=== PATIENT | male | born 2000 | race Caucasian/White ===

== ENCOUNTER 2022-02-12 11:08 | Emergency (ER) | payer BC ==
[2022-02-12] MEDS: Ketorolac 30 MG/ML SDV IM ONE (12:25)
[2022-02-12] MEDS: Bacitracin/Neomycin/Polymyxin B Oint 0.9 GM U/D Packet TOP ONE (12:25)
== END 2022-02-12 12:35 | disposition home or self-care (01) ==
LOC: LL.ED 11:08
DX: S50.311A Abrasion of right elbow, initial encounter (principal); M25.511 Pain in right shoulder; M25.551 Pain in right hip; Z88.0 Allergy status to penicillin; Z88.1 Allergy status to other antibiotic agents; V80.010A Animal-rider injured by fall from or being thrown from horse in noncollision accident, initial encounter
CPT/HCPCS: 36415; 73030-RT; 85025; 96372; 99283; J1885

== ENCOUNTER 2022-02-18 23:38 | Emergency (ER) | payer BC ==
[2022-02-18] MEDS ORDERED: Ketorolac 30 MG/ML SDV IM ONE (23:41)
[2022-02-18] MEDS ORDERED: hydrOXYzine HCl 50 MG/ML SDV IM ONE (23:41)
[2022-02-18] MEDS ORDERED: Ondansetron 4 MG/2 ML SDV IM ONE (23:41)
[2022-02-19 00:10] VITALS: BP 126/73; PULSE 61
== END 2022-02-19 00:25 | disposition home or self-care (01) ==
LOC: LL.ED 23:38
DX: G43.909 Migraine, unspecified, not intractable, without status migrainosus (principal); Z88.1 Allergy status to other antibiotic agents; Z88.0 Allergy status to penicillin
CPT/HCPCS: 96372; 99283; J1885; J2405; J3410

== ENCOUNTER 2023-04-29 18:32 | Emergency (ER) | payer BC ==
[2023-04-29] MEDS ORDERED: Ondansetron 4 MG/2 ML SDV IVPUSH ONE (18:54)
[2023-04-29] MEDS ORDERED: Naloxone 0.4 MG/ML SDV IVPUSH PRN (18:54)
[2023-04-29] MEDS ORDERED: Morphine 2 MG/ML SYRINGE IVPUSH ONE ×2 (18:54→19:53)
[2023-04-29] MEDS ORDERED: Sodium Chloride 0.9% 10 ML Syringe FLUSH PRN (18:55)
[2023-04-29 19:10] LABS: BASOPHILS ABSOLUTE AUTO 0.02 K/uL (0.00-0.20); BASOPHILS PERCENT AUTO 0.2 % (0.0-2.0); EOSINOPHILS ABSOLUTE AUTO 0.11 K/uL (0.00-0.50); EOSINOPHILS PERCENT AUTO 1.1 % (0.0-5.0); HEMOGLOBIN 16.4 g/dL (13.1-16.8); LYMPHOCYTES PERCENT AUTO 12.3 % (10.0-50.0); MEAN CORPUSCULAR HEMOGLOBIN 29.4 pg (28.2-33.3); MEAN CORPUSCULAR HGB CONC 34.2 g/dL (31.7-36.0); MONOCYTES ABSOLUTE AUTO 1.31 K/uL (0.00-1.00); MONOCYTES PERCENT AUTO 13.4 % (2.0-14.0); NEUTROPHILS ABSOLUTE AUTO 7.15 K/uL (1.40-7.00); PLATELET COUNT,PLT 282 K/uL (150-350); RED BLOOD CELL COUNT 5.58 M/uL (4.33-5.41); RED CELL DISTRIBUTION WIDTH 12.8 % (11.2-14.1); WHITE BLOOD CELL COUNT,WBC 9.8 K/uL (4.0-10.2)
[2023-04-29 19:14] LABS: APPEARANCE,URINE SLIGHTLY CLOUDY; BILIRUBIN,URINE NEGATIVE (NEGATIVE); COLOR,URINE YELLOW; GLUCOSE,URINE NEGATIVE (NEGATIVE); KETONES,URINE NEGATIVE (NEGATIVE); LEUKOCYTE ESTERASE,URINE NEGATIVE (NEGATIVE); NITRITE,URINE NEGATIVE (NEGATIVE); OCCULT BLOOD,URINE TRACE-INTACT (NEGATIVE); PH,URINE 5.5 (5.0-9.0); PROTEIN,URINE 30 mg/dL (NEGATIVE); UROBILINOGEN,URINE 0.2 E.U./dL (0.2-1.0)
[2023-04-29 19:19] LABS: BACTERIA,URINE RARE /HPF (NONE TO FEW); EPITHELIAL CELLS,URINE RARE /LPF; RBC,URINE 0-5 /HPF; WBC,URINE 0-5 /HPF
[2023-04-29 19:20] LABS: MUCUS,URINE MODERATE /LPF (NEGATIVE)
[2023-04-29 19:27] LABS: ALBUMIN 3.8 g/dL (3.4-5.0); ANION GAP 9.7 meq/L (7-15); BILIRUBIN TOTAL 0.5 mg/dL (0.2-1.0); CALCIUM 9.2 mg/dL (8.5-10.1); CARBON DIOXIDE,CO2 25.3 mmol/L (21.0-32.0); CREATININE 0.96 mg/dL (0.51-1.17); EST CRCL DRUG DOSING (CG) 133.6 mL/min; PROTEIN TOTAL,TP 7.7 g/dL (6.4-8.2)
[2023-04-29] MEDS ORDERED: Sodium Chloride 0.9% 1,000 ML IV ONE (19:30)
[2023-04-29] MEDS ORDERED: Iopamidol 612 MG/ML 100 ML Bottle IVPUSH ONE (19:31)
[2023-04-29] MEDS ORDERED: Loperamide 2 MG Tab PO ONE (20:53)
[2023-04-29] MEDS ORDERED: Take Home: Ondansetron 4 MG Tab.DIS, 5 Tab Pack PO ONE (20:55)
[2023-04-29] MEDS ORDERED: Take Home: traMADol 50 MG, 4 Tab Pack PO ONE (20:55)
== END 2023-04-29 21:10 | disposition home or self-care (01) ==
LOC: LL.ED 18:32 → UNDOADMOB 20:40 → LL.MS 20:40 → LL.ED 21:10
DX: R10.31 Right lower quadrant pain (principal); F17.210 Nicotine dependence, cigarettes, uncomplicated; Z88.0 Allergy status to penicillin; Z88.1 Allergy status to other antibiotic agents
CPT/HCPCS: 36415; 74177; 80053; 81001; 83605; 85025; 96361; 96374; 96375; 96376; 99284; 99284-25; A9270-GY; J2270; J2405; J3490; J7030; Q0162; Q9967

== ENCOUNTER 2024-02-02 14:57 | Emergency (ER) | payer BC ==
[2024-02-02] MEDS ORDERED: Sodium Chloride 0.9% 10 ML Syringe FLUSH PRN (15:05)
[2024-02-02 15:11] LABS: BASOPHILS ABSOLUTE AUTO 0.02 K/uL (0.00-0.20); BASOPHILS PERCENT AUTO 0.2 % (0.0-2.0); EOSINOPHILS ABSOLUTE AUTO 0.12 K/uL (0.00-0.50); EOSINOPHILS PERCENT AUTO 1.1 % (0.0-5.0); HEMATOCRIT 47.6 % (39.0-49.0); HEMOGLOBIN 16.5 g/dL (13.1-16.8); LYMPHOCYTES ABSOLUTE AUTO 4.04 K/uL (0.50-3.50); LYMPHOCYTES PERCENT AUTO 37.9 % (10.0-50.0); MEAN CORPUSCULAR HEMOGLOBIN 29.3 pg (28.2-33.3); MEAN CORPUSCULAR HGB CONC 34.7 g/dL (31.7-36.0); MEAN CORPUSCULAR VOLUME 84.4 fL (84.0-98.0); MONOCYTES ABSOLUTE AUTO 1.02 K/uL (0.00-1.00); MONOCYTES PERCENT AUTO 9.6 % (2.0-14.0); NEUTROPHILS ABSOLUTE AUTO 5.47 K/uL (1.40-7.00); NEUTROPHILS PERCENT AUTO 51.2 % (45.0-80.0); PLATELET COUNT,PLT 346 K/uL (150-350); RED BLOOD CELL COUNT 5.64 M/uL (4.33-5.41); RED CELL DISTRIBUTION WIDTH 12.9 % (11.2-14.1); WHITE BLOOD CELL COUNT,WBC 10.7 K/uL (4.0-10.2)
[2024-02-02] MEDS: Tranexamic Acid 1,000 MG/10 ML Vial TOP ONE (15:13)
[2024-02-02] MEDS: Tranexamic Acid 1,000 MG/10 ML Vial ONE (15:14)
[2024-02-02 15:26] LABS: INR 1.1 (0.9-1.1); PROTHROMBIN TIME 10.9 SEC (9.0-11.1)
[2024-02-02 15:30] LABS: ALBUMIN 4.2 g/dL (3.4-5.0); ANION GAP 10.5 meq/L (7-15); BILIRUBIN TOTAL 0.5 mg/dL (0.2-1.0); CALCIUM 9.6 mg/dL (8.5-10.1); CARBON DIOXIDE,CO2 26.5 mmol/L (21.0-32.0); CREATININE 1.25 mg/dL (0.51-1.17); EST CRCL DRUG DOSING (CG) 102.6 mL/min; POTASSIUM,K 4.1 mmol/L (3.5-5.1); PROTEIN TOTAL,TP 7.9 g/dL (6.4-8.2)
[2024-02-02] MEDS: Diphtheria,Pertussis(Acell),Tetanus Vaccine 0.5 ML Syringe IM ONE (18:10)
[2024-02-02] MEDS: Take Home: Sulfamethoxazole/Trimethoprim 800-160 MG Tab, 6 Tab Pack PO ONE (18:19)
[2024-02-02] MEDS: Take Home: metroNIDAZOLE 500 MG Tab, 6 Tab Pack PO ONE (18:19)
== END 2024-02-02 18:20 | disposition home or self-care (01) ==
LOC: LL.ED 14:57 → SUPCPDRO 14:57 → LL.ED 18:20
DX: S51.852A Open bite of left forearm, initial encounter (principal); Z88.0 Allergy status to penicillin; Z88.1 Allergy status to other antibiotic agents; Z79.899 Other long term (current) drug therapy; Z23 Encounter for immunization; W54.0XXA Bitten by dog, initial encounter; G43.909 Migraine, unspecified, not intractable, without status migrainosus
CPT/HCPCS: 36415; 80053; 85025; 85610; 90471; 90715; 99283; A9270; J3490